=== PATIENT | female | born 1995 ===

== ENCOUNTER 2017-02-28 20:00 | Emergency (ER) | payer OTHER ==
--- NOTE | 2017-02-28 21:26 | ED PDOC ---
HPI: Female Pain Time Seen by Provider: 02/28/17 20:05 Chief Complaint (Nursing): Female Genitourinary Chief Complaint (Provider): Female Genitourinary History Per: Patient History/Exam Limitations: no limitations Onset/Duration Of Symptoms: Hrs Current Symptoms Are (Timing): Still Present Additional Complaint(s): Ary Vargas is a 21 year old female with no past medical history that presents to the ED with a chief complaint of getting her period today despite having her period just two weeks ago. She reports that it is very heavy, and is associated with mild dizziness and nausea. Patient reports that she called her OB, who advised her to come to the ER. She states that she took Alleve for her pain around 2 PM, but did not experience any relief. Of Note: Patient states that she takes Sprintec oral control, and that her periods have always been regular. Past Medical History Reviewed: Historical Data, Nursing Documentation, Vital Signs Vital Signs: Last Vital Signs Temp 100.4 F H 02/28/17 20:03 Pulse 98 H 02/28/17 20:03 Resp 18 02/28/17 20:03 BP 145/90 02/28/17 20:03 Pulse Ox 100 02/28/17 20:03 - Medical History PMH: No Chronic Diseases - Family History Family History: States: Unknown Family Hx - Home Medications Home Medications: Ambulatory Orders Medication Instructions Recorded Ibuprofen [Motrin] 600 mg PO Q6 #20 tab 02/28/17 - Allergies Allergies/Adverse Reactions: Allergies Allergy/AdvReac Type Severity Reaction Status Date / Time No Known Allergies Allergy Verified 02/28/17 20:03 Review of Systems Gastrointestinal: Positive for: Nausea Genitourinary Female: Positive for: Vaginal Bleeding Neurological: Positive for: Dizziness Physical Exam - Reviewed Nursing Documentation Reviewed: Yes Vital Signs Reviewed: Yes - Physical Exam Appears: Positive for: Non-toxic, No Acute Distress Head Exam: Positive for: ATRAUMATIC, NORMOCEPHALIC Skin: Positive for: Normal Color, Warm Cardiovascular/Chest: Positive for: Regular Rate, Rhythm. Negative for: Murmur Respiratory: Positive for: Normal Breath Sounds. Negative for: Wheezing Gastrointestinal/Abdominal: Positive for: Normal Exam, Soft. Negative for: Tenderness Neurologic/Psych: Positive for: Alert, Oriented. Negative for: Motor/Sensory Deficits - Laboratory Results Result Diagrams: 02/28/17 21:23 02/28/17 21:23 - ECG O2 Sat by Pulse Oximetry: 100 (RA) Pulse Ox Interpretation: Normal Medical Decision Making Medical Decision Making: Impression: Vaginal Bleeding Plan: * US Transvaginal * CBC * CMP * Urine Dip * Urine * Reevaluation US Transvaginal FINDINGS: Uterus/cervix: Uterus measures 7.0 x 2.6 x 3.2 cm in size. No myometrial mass. Endometrium: 0.4 cm in thickness. Right ovary: 3.0 x 1.4 x 2.2 cm in size. 1.2 x 1.0 x 1.4 cm anechoic lesion. Normal flow. Left ovary: 3.1 x 2.2 x 2.7 cm in size. 1.6 x 1.5 x 1.3 cm anechoic lesion. Normal flow. Free fluid: No significant free fluid. Bladder: Empty bladder which cannot be evaluated with this probe. IMPRESSION: 1. Ovarian cysts. Repeat tmep: 98.7 F Dip: (+) blood, (-) leuks or nites Labs resulted and reviewed with pt who demonstrated full understanding. Reports feeling greatly improved Scribe Attestation: Documented by Laurence Bailon, acting as a scribe for Nisha Krishnan PA-C. Provider Scribe Attestation: All medical record entries made by the Scribe were at my direction and personally dictated by me. I have reviewed the chart and agree that the record accurately reflects my personal performance of the history, physical exam, medical decision making, and the department course for this patient. I have also personally directed, reviewed, and agree with the discharge instructions and disposition. Disposition - Clinical Impression Clinical Impression: Dysfunctional uterine bleeding, Ovarian cyst - Patient ED Disposition Is Patient to be Admitted: No - Disposition Disposition: Routine/Home Disposition Time: 23:43 Condition: STABLE Prescriptions: Ibuprofen [Motrin] 600 mg PO Q6 #20 tab Instructions: Dysfunctional Uterine Bleeding (ED), Ovarian Cyst (ED) Forms: [employer] (Polish), [facility] ED School/Work Excuse
[2017-02-28 21:29] LABS: BASO # 0.1 K/uL (0.0-0.2); BASO % 0.6 % (0.0-2.0); EOS # 0.2 K/uL (0.0-0.7); EOS % 1.2 % (0.0-4.0); HEMATOCRIT 37.1 % (34.0-47.0); LYMPH # 3.7 K/uL (1.0-4.3); LYMPH % 26.6 % (20.0-40.0); MEAN CELL VOLUME 83.6 fl (81.0-99.0); MEAN CORPUSCULAR HEMOGLOBIN 27.2 pg (27.0-31.0); MEAN CORPUSCULAR HGB CONC 32.5 g/dL (33.0-37.0); MEAN PLATELET VOLUME 7.2 fl (7.2-11.7); MONO # 0.7 K/uL (0.0-0.8); MONO % 5.3 % (0.0-10.0); NEUT # 9.4 K/uL (1.8-7.0); NEUT % 66.3 % (50.0-75.0); RED CELL DISTRIBUTION WIDTH 12.8 % (11.5-14.5); WHITE BLOOD COUNT 14.1 K/uL (4.8-10.8)
[2017-02-28 21:42] LABS: ALB/GLOB RATIO 1.3 (1.0-2.1); ALKALINE PHOSPHATASE 69 U/L (38-126); ALT/SGPT 21 U/L (9-52); AST/SGOT 26 U/L (14-36); BILIRUBIN,TOTAL 0.5 mg/dl (0.2-1.3); BLOOD UREA NITROGEN 11 mg/dl (7-17); CALCIUM 9.6 mg/dL (8.4-10.2); CARBON DIOXIDE 25 mmol/L (22-30); CHLORIDE 101 mmol/L (98-107); GFR AFRICAN-AMERICAN > 60; GLUCOSE,RANDOM 100 mg/dL (65-105); POTASSIUM 3.6 MMOL/L (3.6-5.0); SODIUM 138 mmol/l (132-148); TOTAL PROTEIN 7.8 G/DL (6.3-8.2)
--- NOTE | 2017-02-28 22:42 | US ---
EXAM: US Pelvis, Transvaginal CLINICAL HISTORY: 21 years old, female; Signs and symptoms; Menstruation abnormalities; Irregular menstruation; Additional info: Heavy vaginal bleeding TECHNIQUE: Real-time transvaginal pelvic ultrasound (complete) with image documentation. Transvaginal imaging was used for better evaluation of the endometrium and adnexa. COMPARISON: No relevant prior studies available. FINDINGS: Uterus/cervix: Uterus measures 7.0 x 2.6 x 3.2 cm in size. No myometrial mass. Endometrium: 0.4 cm in thickness. Right ovary: 3.0 x 1.4 x 2.2 cm in size. 1.2 x 1.0 x 1.4 cm anechoic lesion. Normal flow. Left ovary: 3.1 x 2.2 x 2.7 cm in size. 1.6 x 1.5 x 1.3 cm anechoic lesion. Normal flow. Free fluid: No significant free fluid. Bladder: Empty bladder which cannot be evaluated with this probe. IMPRESSION: 1. Ovarian cysts.
[2017-03-01 00:04] VITALS: BP 129/83; PULSE 86; RESP 16; TEMP 98; O2SAT 98
== END 2017-02-28 23:45 | disposition home or self-care (01) ==
LOC: H.ER 20:00
DX: N93.8 Other specified abnormal uterine and vaginal bleeding (principal); N83.209 Unspecified ovarian cyst, unspecified side
CPT/HCPCS: 76830; 80053; 81025; 85025; 96374; 99283; J1885

== ENCOUNTER 2017-09-03 17:45 | Emergency (ER) | payer OTHER ==
[2017-09-03 18:17] VITALS: BP 144/89; PULSE 64; RESP 19; TEMP 98; O2SAT 100
--- NOTE | 2017-09-03 18:21 | ED PDOC ---
HPI: General Adult Time Seen by Provider: 09/03/17 18:09 Chief Complaint (Nursing): Flu-like Symptoms Chief Complaint (Provider): Headache, nausea and vomiting History Per: Patient History/Exam Limitations: no limitations Onset/Duration Of Symptoms: Hrs Have you had recent travel within the past 21 days to any of the following countries: [place], [place], [place] or [place]?: No Current Symptoms Are (Timing): Still Present Additional Complaint(s): 22 y/o female, presents to ER for evaluation of nausea and vomiting ongoing since 1pm today. Patient states since the vomiting started, she has not been able to tolerate any liquids or solids. Patient also has mild headache. She denies any fever, chills, cough, abdominal pain, or urinary symptoms. Patient denies taking any medication for her symptoms. No other complaints. PMD: none Past Medical History Reviewed: Historical Data, Nursing Documentation, Vital Signs Vital Signs: Last Vital Signs Temp 98 F 09/03/17 18:16 Pulse 64 09/03/17 18:16 Resp 19 09/03/17 18:16 BP 144/89 09/03/17 18:16 Pulse Ox 100 09/03/17 19:00 - Medical History PMH: No Chronic Diseases - Surgical History Surgical History: No Surg Hx - Family History Family History: States: No Known Family Hx - Living Arrangements Living Arrangements: With Family - Social History Current smoker - smoking cessation education provided: No Alcohol: None Drugs: Denies - Home Medications Home Medications: Ambulatory Orders Medication Instructions Recorded Ibuprofen [Motrin] 600 mg PO Q6 #20 tab 02/28/17 Ondansetron [Zofran Odt] 4 mg PO ASDIR PRN #15 odt 09/03/17 - Allergies Allergies/Adverse Reactions: Allergies Allergy/AdvReac Type Severity Reaction Status Date / Time No Known Allergies Allergy Verified 02/28/17 20:03 Review of Systems ROS Statement: Except As Marked, All Systems Reviewed And Found Negative Constitutional: Negative for: Fever, Chills Respiratory: Negative for: Cough Gastrointestinal: Positive for: Nausea, Vomiting. Negative for: Abdominal Pain , Diarrhea, Constipation Genitourinary Female: Negative for: Dysuria, Hematuria, Vaginal Discharge, Vaginal Bleeding Neurological: Positive for: Headache. Negative for: Dizziness Physical Exam - Reviewed Nursing Documentation Reviewed: Yes Vital Signs Reviewed: Yes - Physical Exam Appears: Positive for: Non-toxic, No Acute Distress Head Exam: Positive for: ATRAUMATIC, NORMAL INSPECTION, NORMOCEPHALIC Skin: Positive for: Normal Color. Negative for: Rash Eye Exam: Positive for: Normal appearance ENT: Positive for: Pharyngeal Erythema. Negative for: Tonsillar Exudate, Tonsillar Swelling Neck: Positive for: Supple Cardiovascular/Chest: Positive for: Regular Rate, Rhythm. Negative for: Murmur Respiratory: Positive for: Normal Breath Sounds. Negative for: Wheezing Gastrointestinal/Abdominal: Positive for: Normal Exam, Soft. Negative for: Tenderness, Distended, Guarding, Rebound Back: Negative for: L CVA Tenderness, R CVA Tenderness Neurologic/Psych: Positive for: Alert, Oriented. Negative for: Motor/Sensory Deficits - Laboratory Results Urine POC: Negative - ECG O2 Sat by Pulse Oximetry: 100 (RA) Pulse Ox Interpretation: Normal Medical Decision Making Medical Decision Making: Impression: 22 y/o female with nausea, vomiting and headache Plan: -- Urine - negative --IM zofran --PO tylenol --Rapid strep --Flu swab Strep and flu are negative. Patient feels much better after meds were given. Nausea resolved, headache resolved. Patient not tolerating liquids without further emesis. Prescription provided for Zofran. Advised Tylenol or Advil for headache as needed, fluids, rest and patient was referred to clinic for follow-up. Scribe Attestation: Documented by Jada Crews acting as a scribe for HASEEB Laws Provider Attestation: All medical record entries made by the Scribe were at my direction and personally dictated by me. I have reviewed the chart and agree that the record accurately reflects my personal performance of the history, physical exam, medical decision making, and the department course for this patient. I have also personally directed, reviewed, and agree with the discharge instructions and disposition. Disposition - Clinical Impression Clinical Impression: Nausea and vomiting - Patient ED Disposition Is Patient to be Admitted: No Counseled Patient/Family Regarding: Studies Performed, Diagnosis, Need For Followup, Rx Given - Disposition Referrals: [facility] [Outside] Disposition: Routine/Home Disposition Time: 20:02 Condition: IMPROVED Additional Instructions: Take prescription meds as directed. [id number] Tylenol or Advil for pain as needed. Follow-up with clinic in 2-3 days. Prescriptions: Ondansetron [Zofran Odt] 4 mg PO ASDIR PRN #15 odt PRN Reason: Nausea/Vomiting Instructions: Nausea and Vomiting, Adult (DC) Forms: [facility] ([place]an), [facility] ED School/Work Excuse
== END 2017-09-03 20:24 | disposition home or self-care (01) ==
LOC: H.ER 17:45
DX: R11.2 Nausea with vomiting, unspecified (principal)
CPT/HCPCS: 81025; 87070; 87430; 87804; 96372; 99282; J2405

== ENCOUNTER 2017-09-05 14:14 | Emergency (ER) | payer OTHER ==
[2017-09-05] MEDS ORDERED: Albuterol-Ipratrop 3 mg / 0.5 (3 ml) UD INH STA (15:01)
[2017-09-05] MEDS ORDERED: Sodium Chloride 0.9% 1,000 ML IV STA (15:01)
--- NOTE | 2017-09-05 15:06 | ED PDOC ---
HPI: General Adult Time Seen by Provider: 09/05/17 14:39 Chief Complaint (Nursing): Flu-like Symptoms History Per: Patient Additional Complaint(s): Pt. states this morning she woke up with SOB and headache. Reports feeling her chest tight. States she took her albuterol inhaler without any relief. Further states later on she developed multiple episodes of vomiting and after the vomiting she developed epigastric and RUQ pain. States headache is gradual in onset and is bitemporal. Furthermore she had similar symptoms in 2 days ago and was seen in [facility] ED and prescribed zofran with good relief of symptoms. Denies fever, hemoptysis, hx of DVT or PE, recent prolonged immobilization of limb, post prandial abdominal pain, leg pain, chest pain, MARIA, previous abdominal surgeries, diarrhea, head injury, rash, neck pain/stiffness, trauma, bodyaches. Of note, pt. does take Sprintec ( control pill). Past Medical History Reviewed: Historical Data, Nursing Documentation, Vital Signs Vital Signs: Last Vital Signs Temp 98.0 F 09/05/17 14:31 Pulse 101 H 09/05/17 15:11 Resp 20 09/05/17 14:31 BP 149/90 09/05/17 14:31 Pulse Ox 99 09/05/17 15:11 - Medical History PMH: Denies: Asthma, Deep Vein Thrombosis, Pulmonary Embolism - Surgical History Surgical History: No Surg Hx - Family History Family History: States: No Known Family Hx Denies: Stroke, [place], CAD - Social History Current smoker - smoking cessation education provided: No Ex-Smoker (has not smoked in the last 12 months): No Drugs: Denies - Home Medications Home Medications: Ambulatory Orders Medication Instructions Recorded Ibuprofen [Motrin] 600 mg PO Q6 #20 tab 02/28/17 Ondansetron [Zofran Odt] 4 mg PO ASDIR PRN #15 odt 09/03/17 Albuterol HFA [Ventolin HFA 90 2 puff IH [id number] PRN #120 puff 09/05/17 mcg/actuation (8 g)] Metoclopramide [Reglan] 10 mg PO TID PRN #15 tab 09/05/17 - Allergies Allergies/Adverse Reactions: Allergies Allergy/AdvReac Type Severity Reaction Status Date / Time No Known Allergies Allergy Verified 02/28/17 20:03 Review of Systems ROS Statement: Except As Marked, All Systems Reviewed And Found Negative Cardiovascular: Negative for: Chest Pain Respiratory: Positive for: Cough, Shortness of Breath, Wheezing Gastrointestinal: Positive for: Nausea, Vomiting Neurological: Positive for: Headache Physical Exam - Reviewed Nursing Documentation Reviewed: Yes Vital Signs Reviewed: Yes - Physical Exam Appears: Positive for: Well, Non-toxic, No Acute Distress (speaking in full sentences) Head Exam: Positive for: ATRAUMATIC, NORMAL INSPECTION, NORMOCEPHALIC Skin: Positive for: Normal Color, Warm. Negative for: Rash Eye Exam: Positive for: EOMI, Normal appearance, PERRL ENT: Positive for: Normal ENT Inspection Neck: Positive for: Normal, Painless ROM Cardiovascular/Chest: Positive for: Tachycardia. Negative for: Murmur Respiratory: Positive for: CNT, Normal Breath Sounds Gastrointestinal/Abdominal: Positive for: Normal Exam, Bowel Sounds, Soft Back: Positive for: Normal Inspection Extremity: Positive for: Normal ROM Neurologic/Psych: Positive for: Alert, Oriented - Laboratory Results Result Diagrams: 09/05/17 15:16 09/05/17 15:16 - ECG ECG: Positive for: Interpreted By Me ECG Rhythm: Positive for: Sinus Tachycardia. Negative for: ST/T Changes Rate: 101 O2 Sat by Pulse Oximetry: 99 - Radiology X-Ray: Interpreted by Me (CXR) - Progress ED Course And Treament: Labs, CXR, albuterol neb, EKG ordered. Pt. placed on hall monitor. 1650 On re-evaluation, pt. sleeping comfortably but was easily awakened to verbal stimuli. Pt. reports complete relief of abdominal pain, SOB, headache, and nausea. Pt. requesting to be discharged. Informed of results. playground monitor: SR at [address]-T wave changes. Repeat temp: 99.7, POX : 96% on RA. Pt. in no distress. Speaking in full sentences. Lungs clear b/l. Abd soft and non-tender to deep palpation. Negative Psoas and obturator sign. Deneis RLQ abdominal pain. Disposition - Clinical Impression Clinical Impression: Bronchospasm, acute, Migraine - Patient ED Disposition Is Patient to be Admitted: No - Disposition Referrals: [facility] [Outside] Disposition: Routine/Home Disposition Time: 16:59 Condition: STABLE Additional Instructions: FOLLOW UP WITH YOUR PRIMARY CARE DOCTOR BUT RETURN TO THE EMERGENCY DEPARTMENT IMMEDIATELY IF YOUR SYMPTOMS RETURN AND ARE UNRELIEVED WITH THE PRESCRIBED MEDICATIONS OR ANY OTHER CONCERNS ARISE. Prescriptions: Albuterol HFA [Ventolin HFA 90 mcg/actuation (8 g)] 2 puff IH [id number] PRN #120 puff PRN Reason: Wheezing Metoclopramide [Reglan] 10 mg PO TID PRN #15 tab PRN Reason: nausea or headache Instructions: Migraine Headache (DC), Wheezing Forms: [facility] (South Korean), [facility] ED School/Work Excuse Print Language: [place] CITIZ[place] Wells Criteria for PE - Wells Criteria for Pulmonary Embolism Clinical Signs and Symptoms of DVT: No P.E is #1 Diagnosis, or Equally Likely: No Heart Rate >100: Yes Immobilization at least 3 days;Surgery previous 4 weeks: No Previous, objectively diagnosed PE or DVT: No Hemoptysis: No Malignancy w/treatment within 6 months, or palliative: No Total Score: 1.5 ROSALINDA Risk Score for UA/NSTEMI - ROSALINDA Risk Score Age > 64: NO 3 or more CAD Risk Factors: NO Known CAD (Stenosis greater than 50%): NO Aspirin use in past 7 days: NO Severe Angina: NO EKG ST changes greater than 0.5mm: NO Positive Cardiac Marker: NO ROSALINDA Score: 0 % risk at 14 days of: all cause mortality, new or recurrent PR, or severe recurrent ischemia requiring urgen revascularization: 5%
[2017-09-05 15:36] LABS: BASO % 0.2 % (0.0-2.0); EOS # 0.3 K/uL (0.0-0.7); EOS % 2.4 % (0.0-4.0); HEMOGLOBIN 13.1 g/dL (12.0-16.0); LYMPH # 1.1 K/uL (1.0-4.3); LYMPH % 7.5 % (20.0-40.0); MEAN CELL VOLUME 83.7 fl (81.0-99.0); MEAN CORPUSCULAR HEMOGLOBIN 27.3 pg (27.0-31.0); MEAN CORPUSCULAR HGB CONC 32.6 g/dL (33.0-37.0); MEAN PLATELET VOLUME 7.6 fl (7.2-11.7); MONO # 0.4 K/uL (0.0-0.8); MONO % 2.7 % (0.0-10.0); NEUT # 12.6 K/uL (1.8-7.0); NEUT % 87.2 % (50.0-75.0); PLATELET COUNT 428 K/uL (130-400); RED CELL DISTRIBUTION WIDTH 13.9 % (11.5-14.5); WHITE BLOOD COUNT 14.4 K/uL (4.8-10.8)
[2017-09-05 15:47] LABS: ALB/GLOB RATIO 1.1 (1.0-2.1); ALBUMIN 4.2 g/dL (3.5-5.0); ALT/SGPT 41 U/L (9-52); AST/SGOT 37 U/L (14-36); BLOOD UREA NITROGEN 9 mg/dl (7-17); CALCIUM 9.3 mg/dL (8.4-10.2); GFR AFRICAN-AMERICAN > 60; GFR NON-AFRICAN AMERICAN > 60; LIPASE 47 U/L (23-300)
--- NOTE | 2017-09-05 15:51 | RAD ---
HISTORY: cough COMPARISON: No prior. TECHNIQUE: Chest PA and lateral FINDINGS: LUNGS: No active pulmonary disease. PLEURA: Eventration of the right hemidiaphragm. No significant pleural effusion identified. No pneumothorax apparent. CARDIOVASCULAR: Normal. OSSEOUS STRUCTURES: No significant abnormalities. VISUALIZED UPPER ABDOMEN: Normal. OTHER FINDINGS: Bilateral nipple ornamentation. IMPRESSION: No active disease.
[2017-09-05] MEDS ORDERED: Albuterol-Ipratrop 3 mg / 0.5 (3 ml) UD ONE (15:53)
--- NOTE | 2017-09-05 15:58 | US ---
HISTORY: epigastric, RUQ pain COMPARISON: None. TECHNIQUE: Sonographic evaluation of the abdomen. FINDINGS: LIVER: Measures 14.6 cm. Increased echogenicity of the liver parenchyma. No mass. No intrahepatic bile duct dilatation. GALLBLADDER: Unremarkable. No gallstones. COMMON BILE DUCT: Measures 4 mm. No stones. No dilatation. PANCREAS: Unremarkable as visualized. No mass. No ductal dilatation. RIGHT KIDNEY: Measures 10.6 x 4.4 x 4.6cm. Normal echogenicity. No calculus, mass, or hydronephrosis. LEFT KIDNEY: Measures 10.8 x 4.5 x 5.2cm. Normal echogenicity. No calculus, mass, or hydronephrosis. SPLEEN: Normal in size and contour. No mass. AORTA: No aneurysmal dilatation. IVC: Unremarkable. OTHER FINDINGS: None. IMPRESSION: Hepatic steatosis.
[2017-09-05 17:09] VITALS: BP 125/71; PULSE 91; RESP 15; TEMP 99; O2SAT 98
[2017-09-05 18:30] LABS: BANDS 4 % (0-2); LYMPHOCYTE 11 % (20-50); MONOCYTE 3 % (0-10); NEUTROPHIL 80 % (42-75); REACTIVE LYMPHOCYTES 2 % (0-0); TOTAL CELLS COUNTED 100
[2017-09-05 18:31] LABS: HYPOCHROMIC SLIGHT; LARGE PLATELETS PRESENT; PLATELET ESTIMATE NORMAL (NORMAL)
[2017-09-05 19:04] LABS: VENOUS BLOOD GAS BASE EXCESS 1.3 mmol/L (0.0-2.0); VENOUS BLOOD GAS PCO2 52 mmHg (40-60); VENOUS BLOOD GAS PO2 25 mm/Hg (30-55); VENOUS BLOOD PH 7.34 (7.32-7.43)
--- NOTE | 2017-09-06 13:38 | CARD ---
APPROVED REPORT EKG Measurement Heart [id number] <Conclusion> Sinus tachycardia Otherwise normal ECG
== END 2017-09-05 17:10 | disposition home or self-care (01) ==
LOC: H.ER 14:14
DX: J98.01 Acute bronchospasm (principal); G43.909 Migraine, unspecified, not intractable, without status migrainosus; R00.0 Tachycardia, unspecified
CPT/HCPCS: 71046; 76700; 80053; 81025; 82803; 83690; 85025; 85378; 93005; 94640; 96374; 96375; 99284; J2765; J7040

== ENCOUNTER 2017-10-17 11:29 | Emergency (ER) | payer OTHER ==
[2017-10-17 11:31] VITALS: BMI 38.4
[2017-10-17 11:33] VITALS: RESP 20; TEMP 98.4; O2SAT 98
[2017-10-17] MEDS ORDERED: Albuterol-Ipratrop 3 mg / 0.5 (3 ml) UD INH STA (12:20)
--- NOTE | 2017-10-17 12:22 | ED PDOC ---
HPI: SOB/CHF/COPD Time Seen by Provider: 10/17/17 12:21 Chief Complaint (Nursing): Shortness Of Breath Chief Complaint (Provider): sob History Per: Patient (22 y/o female h/o Asthma notes exacerbation of symptoms x few days associated with lack of cleaning at work space. Denies any fever/ chills. States she has had to frequently use albuterol yesterday. Admits OCP use; denies any smoking.) Past Medical History Reviewed: Historical Data, Nursing Documentation, Vital Signs Vital Signs: Last Vital Signs Temp 98.4 F 10/17/17 11:32 Pulse 70 10/17/17 11:32 Resp 20 10/17/17 12:13 BP 127/83 10/17/17 11:32 Pulse Ox 98 10/17/17 12:22 - Medical History PMH: Asthma Denies: Deep Vein Thrombosis, Pulmonary Embolism - Family History Family History: States: Unknown Family Hx Denies: Stroke, [place], CAD - Home Medications Home Medications: Ambulatory Orders Medication Instructions Recorded Ibuprofen [Motrin] 600 mg PO Q6 #20 tab 02/28/17 Ondansetron [Zofran Odt] 4 mg PO ASDIR PRN #15 odt 09/03/17 Albuterol HFA [Ventolin HFA 90 2 puff IH [id number] PRN #120 puff 09/05/17 mcg/actuation (8 g)] Metoclopramide [Reglan] 10 mg PO TID PRN #15 tab 09/05/17 predniSONE [predniSONE Tab] 3 tab PO DAILY #12 tab 10/17/17 - Allergies Allergies/Adverse Reactions: Allergies Allergy/AdvReac Type Severity Reaction Status Date / Time apple Allergy ANAPHYLAXIS Verified 10/17/17 11:43 pear Allergy ITCHING Verified 10/17/17 11:43 pomegranate Allergy ITCHING Verified 10/17/17 11:43 Review of Systems ROS Statement: Except As Marked, All Systems Reviewed And Found Negative Physical Exam - Reviewed Nursing Documentation Reviewed: Yes Vital Signs Reviewed: Yes - Physical Exam Appears: Positive for: Well, Non-toxic, No Acute Distress Head Exam: Positive for: ATRAUMATIC, NORMAL INSPECTION, NORMOCEPHALIC Skin: Positive for: Normal Color, Warm, DRY Eye Exam: Positive for: EOMI, Normal appearance, PERRL ENT: Positive for: Normal ENT Inspection Neck: Positive for: Normal, Painless ROM Cardiovascular/Chest: Positive for: Regular Rate, Rhythm Respiratory: Positive for: CNT, Normal Breath Sounds Gastrointestinal/Abdominal: Positive for: Normal Exam, Soft Back: Positive for: Normal Inspection Extremity: Positive for: Normal ROM Neurologic/Psych: Positive for: Alert, Oriented - ECG O2 Sat by Pulse Oximetry: 98 - Progress ED Course And Treament: duoneb x 1 dose prednisone 60 mg x 1 dose Patient states improvement of dyspnea with treatment/prednisone Disposition - Clinical Impression Clinical Impression: Asthma exacerbation - Patient ED Disposition Is Patient to be Admitted: No - Disposition Disposition Time: 13:25 Condition: FAIR Prescriptions: predniSONE [predniSONE Tab] 3 tab PO DAILY #12 tab Instructions: Asthma, Adult (DC) Forms: [facility] (Dominican), [facility] Ex[facility]
[2017-10-17] MEDS ORDERED: Albuterol-Ipratrop 3 mg / 0.5 (3 ml) UD ONE (12:27)
[2017-10-17 13:52] VITALS: BP 122/74; PULSE 74
== END 2017-10-17 13:52 | disposition home or self-care (01) ==
LOC: H.ER 11:29
DX: J45.901 Unspecified asthma with (acute) exacerbation (principal)

== ENCOUNTER 2018-09-04 17:26 | Emergency (ER) | payer OTHER ==
[2018-09-04 18:14] VITALS: BMI 42.0
[2018-09-04] MEDS ORDERED: Sodium Chloride 0.9% 1,000 ML IV SCH (18:45)
--- NOTE | 2018-09-04 18:47 | ED PDOC ---
HPI: Abdomen Time Seen by Provider: 09/04/18 18:30 Chief Complaint (Nursing): Abdominal Pain Chief Complaint (Provider): Abdominal cramping/n/v History Per: Patient (Pt c/o lower abd cramping for a few weeks worse in the last week, with associated headache, n/v and feeling tired. pt reports nausea is worse in the am. Vomiting x1 today. Pt verbalized last lmp was in may and is sexually active. Pt took two tests at home-- noted first with faint unclear line; second was negative. at this moment pt reports headache and nausea are worse symptoms at this time and has not take any meds for current problem. Pt denies vag bleeding/discharge or urinary complaints. ) Onset/Duration Of Symptoms: Days Outside of [place] travel?: No Current Symptoms Are (Timing): Still Present Severity: Mild Pain Scale Rating Of: 3 Location Of Pain/Discomfort: Periumbilical, Suprapubic Quality Of Discomfort: Cramping Associated Symptoms: Nausea, Vomiting Exacerbating Factors: None Alleviating Factors: None Abnormal Vaginal Bleeding: No Last Menstral Period: JUNE 26, 2018 : 0 Past Medical History Reviewed: Historical Data, Nursing Documentation, Vital Signs Vital Signs: Last Vital Signs Temp 98.5 F 09/04/18 18:12 Pulse 64 09/04/18 18:12 Resp 18 09/04/18 18:12 BP 150/86 09/04/18 18:12 Pulse Ox 97 09/04/18 18:12 - Medical History PMH: Asthma Denies: Deep Vein Thrombosis, Pulmonary Embolism - Surgical History Surgical History: No Surg Hx - Family History Family History: States: Unknown Family Hx Denies: Stroke, [place], CAD - Social History Current smoker - smoking cessation education provided: No Alcohol: None Drugs: Denies - Home Medications Home Medications: Ambulatory Orders Medication Instructions Recorded Ibuprofen [Motrin] 600 mg PO Q6 #20 tab 02/28/17 Ondansetron [Zofran Odt] 4 mg PO ASDIR PRN #15 odt 09/03/17 Albuterol HFA [Ventolin HFA 90 2 puff IH [id number] PRN #120 puff 09/05/17 mcg/actuation (8 g)] Metoclopramide [Reglan] 10 mg PO TID PRN #15 tab 09/05/17 predniSONE [predniSONE Tab] 3 tab PO DAILY #12 tab 10/17/17 - Allergies Allergies/Adverse Reactions: Allergies Allergy/AdvReac Type Severity Reaction Status Date / Time apple Allergy ANAPHYLAXIS Verified 09/04/18 18:14 pear Allergy ITCHING Verified 09/04/18 18:14 pomegranate Allergy ITCHING Verified 09/04/18 18:14 Review of Systems ROS Statement: Except As Marked, All Systems Reviewed And Found Negative Gastrointestinal: Positive for: Nausea, Vomiting, Abdominal Pain Physical Exam - Reviewed Nursing Documentation Reviewed: Yes Vital Signs Reviewed: Yes - Physical Exam Appears: Positive for: Well, Non-toxic, No Acute Distress Head Exam: Positive for: ATRAUMATIC, NORMAL INSPECTION, NORMOCEPHALIC Skin: Positive for: Normal Color, Warm, DRY Eye Exam: Positive for: EOMI, Normal appearance, PERRL ENT: Positive for: Normal ENT Inspection Neck: Positive for: Normal, Painless ROM Cardiovascular/Chest: Positive for: Regular Rate, Rhythm Respiratory: Positive for: CNT, Normal Breath Sounds Gastrointestinal/Abdominal: Positive for: Normal Exam, Soft, Tenderness (epigastric tenderness) Pelvic Exam: Positive for: External Exam Normal, Bimanual Exam Normal, No Cerv. Motion Tender, Discharge (foul-smelling). Negative for: Active Bleeding, Tender W/Cervical Motion, Tender Adnexa Back: Positive for: Normal Inspection Extremity: Positive for: Normal ROM Neurological/Psych: Positive for: Awake, Alert, Normal Tone - Laboratory Results Urine POC: Negative - ECG O2 Sat by Pulse Oximetry: 97 - Progress ED Course And Treament: pepcid 20 mg iv x 1 dose zofran 4mg iv x 1 dose NS 1 liter 500ml per hour Disposition - Clinical Impression Clinical Impression: Abdominal pain in female - Patient ED Disposition Is Patient to be Admitted: Transfer of Care - Disposition Disposition: Transfer of Care Disposition Time: 20:00 Condition: FAIR Patient Signed Over To: Brenda Mclaughlin Handoff Comments: pending bloodwork/us/ua/re-eval
[2018-09-04 19:38] LABS: BASO # 0.1 K/uL (0.0-0.2); BASO % 0.4 % (0.0-2.0); EOS # 0.5 K/uL (0.0-0.7); EOS % 3.2 % (0.0-4.0); LYMPH # 3.8 K/uL (1.0-4.3); LYMPH % 27.1 % (20.0-40.0); MEAN CELL VOLUME 82.8 fl (81.0-99.0); MEAN CORPUSCULAR HEMOGLOBIN 27.4 pg (27.0-31.0); MEAN CORPUSCULAR HGB CONC 33.1 g/dL (33.0-37.0); MEAN PLATELET VOLUME 7.6 fl (7.2-11.7); MONO # 0.7 K/uL (0.0-0.8); MONO % 4.7 % (0.0-10.0); NEUT # 9.2 K/uL (1.8-7.0); NEUT % 64.6 % (50.0-75.0); RBC 4.74 Mil/uL (3.80-5.20); RED CELL DISTRIBUTION WIDTH 14.4 % (11.5-14.5); WHITE BLOOD COUNT 14.2 K/uL (4.8-10.8)
[2018-09-04 19:50] LABS: URINE BILIRUBIN NEGATIVE (NEGATIVE); URINE BLOOD NEGATIVE (NEGATIVE); URINE COLOR YELLOW (YELLOW); URINE GLUCOSE (UA) NEG (NEGATIVE); URINE LEUKOCYTE ESTERASE MOD Leu/uL (Negative); URINE PROTEIN NEGATIVE (NEGATIVE)
[2018-09-04 19:52] LABS: URINE APPEARANCE SL CLOUDY (CLEAR)
[2018-09-04 19:58] LABS: BLOOD UREA NITROGEN 13 mg/dl (7-17); GFR NON-AFRICAN AMERICAN > 60
[2018-09-04 19:59] LABS: ALB/GLOB RATIO 1.2 (1.0-2.1); ALBUMIN 4.5 g/dL (3.5-5.0); ALT/SGPT 54 U/L (9-52); AST/SGOT 79 U/L (14-36); CALCIUM 9.4 mg/dL (8.4-10.2)
--- NOTE | 2018-09-04 22:09 | ED PDOC ---
- Laboratory Results Result Diagrams: 09/04/18 19:34 09/04/18 18:50 Lab Results: Total Bilirubin 0.5 mg/dl (0.2-1.3) 09/04/18 18:50 AST 79 U/L (14-36) H D 09/04/18 18:50 ALT 54 U/L (9-52) H D 09/04/18 18:50 Alkaline Phosphatase 93 U/L (38-126) 09/04/18 18:50 Total Protein 8.4 G/DL (6.3-8.2) H 09/04/18 18:50 Albumin 4.5 g/dL (3.5-5.0) 09/04/18 18:50 Globulin 3.8 gm/dL (2.2-3.9) 09/04/18 18:50 Albumin/Globulin Ratio 1.2 (1.0-2.1) 09/04/18 18:50 Lipase 56 U/L (23-300) 09/04/18 19:00 Urine Color Yellow (YELLOW) 09/04/18 18:40 Urine Appearance Sl cloudy (CLEAR) 09/04/18 18:40 Urine pH 7.0 (5.0-8.0) 09/04/18 18:40 Ur Specific [place] 1.016 (1.003-1.030) 09/04/18 18:40 Urine Protein Negative mg/dL (NEGATIVE) 09/04/18 18:40 Urine Glucose (UA) Neg mg/dL (NEGATIVE) 09/04/18 18:40 Urine Ketones Negative mg/dL (NEGATIVE) 09/04/18 18:40 Urine Blood Negative (NEGATIVE) 09/04/18 18:40 Urine Nitrate Negative (NEGATIVE) 09/04/18 18:40 Urine Bilirubin Negative (NEGATIVE) 09/04/18 18:40 Urine Urobilinogen 2.0 mg/dL (0.2-1.0) H 09/04/18 18:40 Ur Leukocyte Esterase Mod Aidee/uL (Negative) 09/04/18 18:40 Urine POC: Negative - ECG O2 Sat by Pulse Oximetry: 97 - Progress ED Course And Treament: Case endorsed to customs entry writer from [facility] pending labs, imaging EXAM: US Pelvis, Complete. CLINICAL HISTORY: Pain TECHNIQUE: Transvaginal pelvic ultrasound (complete) with image documentation. COMPARISON: None provided. FINDINGS: ENDOMETRIUM: Endometrial stripe measures 0.4 cm. Within normal limits. UTERUS/CERVIX: Uterus measures 6.4 x 2.5 x 3.2 cm. No focal lesion identified. RIGHT OVARY: Right ovary measures 2.9 x 1.7 x 2.7 cm. Small simple appearing cyst in the right ovary measures up to 1.9 cm. LEFT OVARY: Left ovary measures 2.2 x 1.4 x 2.0 cm. FREE FLUID: No free fluid. IMPRESSION: 1. Uterus measures 6.4 x 2.5 x 3.2 cm. No focal lesions. 2. Endometrial stripe measures 0.4 cm, within normal limits. 3. Right ovary measures 2.9 x 1.7 x 2.7 cm. 4. Left ovary measures 2.2 x 1.4 x 2.0 cm. 5. Small simple appearing cyst in the right ovary measures up to 1.9 cm. EXAM: US Abdomen, Right Upper Quadrant. CLINICAL HISTORY: Ruq pain TECHNIQUE: Right upper quadrant sonography performed with image documentation. COMPARISON: Comparison is made to previous abdominal ultrasound examination dated 09/05/2017. FINDINGS: LIVER: Within normal limits in size. There is increased echogenicity noted suggestive of steatosis. No mass detected. GALLBLADDER: The gallbladder appears within normal limits. No gallbladder wall thickening or pericholecystic fluid. COMMON BILE DUCT: No dilation. PANCREAS: The pancreas is obscured by bowel gas. RIGHT KIDNEY: Unremarkable. Normal renal contours. No renal mass or calculus. No hydronephrosis. IMPRESSION: 1. Evidence of hepatic steatosis. 2. The pancreas was obscured by bowel gas and subsequent to large body habitus. 3. Otherwise, unremarkable right upper quadrant ultrasound On re-eval, patient resting comfortably; denies complaints of pain. Abdomen soft, NT/ND Patient educated on findings, and offered CT abd/pelvis for further evaluation but patient states pain resolved and she would like to go home. Patient was advised to return to ED [facility] for returning pain, vomiting, fever Rx Metrogel provided with instructions to follow up with Heating Equipment Installer Return precautions given Patient requires no further intervention in the ED and is stable for discharge at this time Disposition - Clinical Impression Clinical Impression: Abdominal pain in female, Bacterial vaginosis, Abdominal pain, Ovarian cyst - POA Present On Arrival: None - Disposition Disposition: Routine/Home Disposition Time: 22:10 Condition: IMPROVED Prescriptions: Metronidazole [Metrogel-Vaginal] 1 applic VG HS 5 Days #1 gel Instructions: Ovarian Cysts, Acute Abdomen (Belly Pain), Adult (DC), Bacterial Vaginosis Forms: [facility] (Romanian)
[2018-09-04 22:19] VITALS: BP 138/93; PULSE 65; RESP 14; TEMP 98; O2SAT 99
--- NOTE | 2018-09-05 11:03 | US ---
Date of service: 09/04/2018 HISTORY: ruq pain COMPARISON: Limited abdomen ultrasound 09/05/2017. TECHNIQUE: Sonographic evaluation of the right upper quadrant of the abdomen. FINDINGS: Body habitus limits performance of this examination in general. LIVER: Measures 14.7 cm in length. Increased echogenicity of the liver parenchyma is reiterated reflecting hepatic steatosis or other infiltrative process once again. No mass. No intrahepatic bile duct dilatation. GALLBLADDER: Unremarkable. No gallstones. COMMON BILE DUCT: Measures 3.5 mm. No stones. No dilatation. PANCREAS: The spleen is obscured by overlying bowel gas as well as body habitus. RIGHT KIDNEY: Measures 9.5 cm in length. Normal echogenicity. No calculus, mass, or hydronephrosis. AORTA: No aneurysmal dilatation. IVC: Unremarkable. OTHER FINDINGS: None . IMPRESSION: Limited exam due to body habitus. Pancreas completely obscured by overlying bowel gas well as body habitus related imaging constraints. Hepatic steatosis likely though other infiltrative process or possible throughout the liver. Exam basically stable in the interval as imaged. Visualized biliary tree is unremarkable appearing. Concordant preliminary report from [facility], 09/04/2017, 9:26 p.m..
--- NOTE | 2018-09-05 15:35 | US ---
Date of service: 09/04/2018 HISTORY: Pelvic pain COMPARISON: Comparison made with prior pelvic ultrasound 02/28/2017. TECHNIQUE: Transvaginal sonographic evaluation of the pelvis performed. FINDINGS: UTERUS: Measures 6.4 x 2.5 x 3.2 cm. Anteverted normal in size and appearance. No fibroid or other mass lesion seen. ENDOMETRIUM: Measures 4.0 mm in diameter. Unremarkable. CERVIX: No cervical abnormality identified. RIGHT OVARY: Measures 2.9 x 1.7 x 2.7 cm. No solid mass. Normal flow. . Multiple follicles with a simple appearing cyst measuring 1.9 x 0.8 x 1.3 cm. LEFT OVARY: Measures 2.2 x 1.4 x 2.0 cm. No solid mass. Normal flow. FREE FLUID: No significant free fluid noted. OTHER FINDINGS: None. IMPRESSION: Small right-sided ovarian cyst.
== END 2018-09-04 22:22 | disposition home or self-care (01) ==
LOC: H.ER 17:26
DX: R10.9 Unspecified abdominal pain (principal); N76.0 Acute vaginitis; N83.201 Unspecified ovarian cyst, right side; K76.0 Fatty (change of) liver, not elsewhere classified
CPT/HCPCS: 76705; 76830; 80053; 81003; 81025; 83690; 85025; 87086; 87491; 87591; 96374; 96375; 99284; J2405; J7030